=== PATIENT | male | born 2000 | race Caucasian/White ===

== ENCOUNTER 2022-02-10 14:35 | Emergency (ER) | payer MEDICAID ==
[~2022-02-10] VITALS: Ht 167.6 cm; Wt 77.0 kg
[2022-02-10 21:23] LABS: CLARITY URINE CLEAR (CLEAR); COLOR URINE DARK YELLOW (YELLOW); KETONES URINE NEGATIVE (NEGATIVE); LEUKOCYTE ESTERASE URINE NEGATIVE (NEGATIVE); NITRITE URINE NEGATIVE (NEGATIVE); OCCULT BLOOD URINE NEGATIVE (NEGATIVE); PH URINE 5.5 (4.5-8.0); PROTEIN URINE TRACE (NEGATIVE); SPECIFIC GRAVITY URINE 1.034 (1.005-1.030)
[2022-02-10] MEDS ORDERED: METH-653 MT (22:42)
[2022-02-10] MEDS ORDERED: IBUP-2029 MT (22:42)
[2022-02-10 22:53] VITALS: BP 125/78
== END 2022-02-10 22:54 | disposition home or self-care (01) ==
LOC: ER 14:50
DX: M54.50 Low back pain, unspecified (principal); R03.0 Elevated blood-pressure reading, without diagnosis of hypertension; Z98.890 Other specified postprocedural states; Z88.6 Allergy status to analgesic agent
CPT/HCPCS: 72100; 81003; 99284